=== PATIENT | male | born 1950 | race Two or more races ===

== ENCOUNTER → 2024-07-03 | Outpatient (CLI) | payer MEDICARE, MEDICAID, SELFPAY ==
--- NOTE | 2024-07-03 12:40 | XR_ITS ---
Examination: Bone densitometry Date and time of exam:July 03, 2024, 1303 hrs. Indications: 73-year-old male with diagnosis age related osteoporosis Technique: Lumbar spine and hip total bone mineralization values of an calculated. Peak reference and age match control results have been displayed. Findings: Lumbar spine total bone mineralization is1.471 gm/cm2. This is 3.5 standard deviations above peak reference. This is 1.4 standard deviations above age-matched controls. Hip total bone mineralization is 1.299 gm/cm2 This is 1.9 standard deviations above peak reference. This is 2.6 standard deviations above age-matched controls Impression: There is normal mineralization based on lumbar spine measurements. There is normal mineralization based on hip measurements
== END | disposition home or self-care (01) ==
PROVIDERS: PCP Family Medicine; Referring Provider Family Medicine; Visit Provider Family Medicine
DX: M85.88 Other specified disorders of bone density and structure, other site (principal); M81.0 Age-related osteoporosis without current pathological fracture; G89.29 Other chronic pain
CPT/HCPCS: 77080

== ENCOUNTER 2024-09-24 14:00 | Outpatient (AMB) | payer MEDICARE, MEDICAID, SELFPAY ==
--- NOTE | 2024-09-24 14:34 | PD.ORTHCLVIS ---
Vital signs 09/24/24 14:35 Height 1.8 m Height Method Stated Weight 97.607 kg Weight Measurement Method Standing Scale BMI 29.9 BP 124/84 Blood Pressure Source Automatic Cuff Blood Pressure Location Right Upper Arm Position Sitting Respiration 18 Pulse 93 Pulse Source Monitor Temp 99.0 F Temp Source Temporal Artery Scan Pulse Oximetry (%) 91 L Oxygen Delivery Method Room Air Med/Allergies Allergies & Medications Allergies bee venom protein (honey bee) Allergy (Severe, Verified 09/24/24 14:36) Anaphylaxis hydrocodone (From [place]) Allergy (Severe, Verified 09/24/24 14:36) Confusion Medication Reconciliation celecoxib 100 mg capsule 100 mg PO BID PRN Pain 08/08/18 [History Confirmed 05/05/19] lisinopril 30 mg tablet 30 mg PO BID 08/08/18 [History Confirmed 05/05/19] montelukast 10 mg tablet 1 tab PO QDAY 08/08/18 [History Confirmed 05/05/19] tamsulosin 0.4 mg capsule 0.4 mg PO QDAY #30 caps 08/08/18 [Rx Confirmed 05/05/19] hydroxyzine HCl 25 mg tablet 25 mg PO TID PRN Anxiety 05/01/19 [History Confirmed 05/05/19] omeprazole 40 mg capsule,delayed release 40 mg PO QDAY 05/01/19 [History Confirmed 05/05/19] budesonide-formoterol HFA 160 mcg-4.5 mcg/actuation aerosol inhaler (Symbicort) 2 puff inhalation BID 05/05/19 [History Confirmed 05/05/19] tramadol 50 mg tablet 50 mg PO Q8H PRN pain #30 tabs 05/11/19 [Rx] ibuprofen 800 mg tablet 800 mg PO TID PRN pain #30 tabs 10/06/23 [Rx] Exam Exam Breathing is nonlabored. Patient has a normal mood and affect. Bilateral extremities were evaluated and demonstrates sensation intact to light touch. Palpable pedal pulses are present. No significant edema is present. Bilateral hips were examined. The patient has no pain with log roll of the hips. Internal rotation to 30 degrees and external rotation to 30 degrees is painless. Negative FADIR. Left knee was examined today. The left knee is in reasonable alignment. Range of motion from 0-120 degrees. Knee is stable to varus and valgus as well as AP translation with <5mm. Patient has a negative McMurrays. There is no pain with patellofemoral compression and no crepitus noted. The knee is nontender to palpation. The right knee was also examined. The right knee is in varus alignment. Range of motion from 0-115 degrees. Knee is stable to varus and valgus as well as AP translation with <5mm. Patient has a negative McMurrays. There is no pain with patellofemoral compression and no crepitus noted. The knee is tender to palpation medially. Assessment and Plan Problem List (1) Arthritis of right knee: Status: Acute Plan: Patient is a 73-year-old male with right knee pain and radicular pain that shoots down his leg. We will likely do a cortisone injection in the future to differentiate the back from knee pain. We will need weightbearing x-rays as we have no xrays view today. Advanced Care Planning Discussion Advance care planning discussed with:: patient Office Procedures GNS Level of Care Nursing/Assessment Patient Status: Established Patient Nursing Assessment/Reassesment: Medication Reconciliation, Update PMH in EMR and Vital Signs Coordination of Care: Complex Care and Chronic Disease 1-5, Education Complex Pt/Fam, Consent,records obtained, informed consent, Results/Orders obtained and Staff clarify orders Established Patient Charge Established Patient Point Assignment: 95 Established Patient Point Charge: EP Level 3 (80-115) MA Intake Visit Data Collection New Patient or Established: Established Patient (seen at [facility] within 3 years) Reason for Visit:: right knee pain Seen by Clinical Staff ONLY (RN/MA): No Verbal consent obtained for Telemed visit?: No Design Lead Required: Yes PCP or OBGYN visit in last 3 months: Yes Hx Now: No Do You Feel Safe at Home: Yes Authorities Contacted: N/A Questionairres Past Medical History Past Medical History Have you ever been diagnosed with any of the following: Neurological Problems Seizures: No Cardiology Problems Congestive Heart Failure: No Edema: Yes (SWOLLEN FEET AND ANKLE) Cellulitis: No (RIGHT ARMS SCRATCHES) Hypertension: Yes (TAKES MED) Respiratory Problems Chronic Obstructive Pulmonary Disease (COPD): No (HAS ASTHMA HAS INHALER) Asthma: Yes Pneumonia: Yes (HOSP 2019) Tuberculosis: No Sleep Apnea: No Stomache/Intestinal Problems Hepatitis: No Gastrointestinal Bleed: Yes Diverticulitis: Yes Diverticulosis: Yes Hiatal Hernia: Yes Hemorrhoids: Yes (NO [place]ENIX) Gastroesophageal Reflux Disease: Yes Genital/Urinary Problems Renal Disease: No Benign Prostatic Hyperplasia: Yes (TAKES MED) Musculoskeletal Problems Arthritis: Yes Fractures: Yes (RIBS FELL 2019 ER VISIT) Endocrine Problems Diabetes Mellitus Type 1: No Diabetes Mellitus Type 2: No Blood Problems Anemia: No Sickle Cell Disease: No Other Problems Hospitalization: Yes ([facility] 2019 [facility]) Shingles: No Falls: Yes (2019) Blood Transfusions: Yes (2018 DUE TO DIVERTICULITS) Blood Transfusion Reaction: No Anesthesia Reactions: No Chemotherapy: No Radiation Therapy: No MRSA: No Chicken Pox: No Measles: Yes Mumps: No Cancer: No Surgical History Pacemaker: No Subjective Visit Visit for: new patient and knee Immunization / Flu Flu Vaccine in the Last 12 Months: No Flu Vaccine Exclusion Criteria: No Exclusion Criteria History of Present Illness Chief complaint: right knee pain Date of injury / onset of symptoms: 2 months Shashank is a pleasant 72-year-old male with back pain that radiates down his leg. He also reports significant knee pain in both knees. Has not had any conservative treatment. We have no x-rays of his back or knee to review today. He has not tried any anti-inflammatories or injections Personal History Occupation: retired [employer] PMH: BMI BMI Counceling provided: Yes Pain Pain level (0-10): 6 Pain duration: comes and goes Pain quality: dull Associated signs & symptoms: none Ambulatory data Ambulatory device: none Treatments Improvement with previous injections: No Improvement with PT: No Improvement with NSAIDS: no Review of Systems Review of Systems: All systems negative unless otherwise noted in HPI.
[2024-09-24 14:35] VITALS: BP 124/84; PULSE 93; RESP 18; TEMP 37.2; O2SAT 91; BMI 29.9
--- NOTE | 2024-09-24 14:48 | XR_ITS ---
Examination: Lumbar spine 3 views TECHNIQUE: AP lateral coned lateral lower lumbar spine 3 views Date and time: September 24, 2024 1408 hours INDICATIONS: Low back pain 3 months. FINDINGS: Adequate alignment lumbar vertebral bodies on the lateral view Diffuse advanced lumbar degenerative disc disease Prominent lumbar spondylosis IMPRESSION: Diffuse advanced lumbar degenerative disc disease
--- NOTE | 2024-09-24 14:48 | XR_ITS ---
Examination: Bilateral knees 2 views Right lateral knee left lateral knee 2 views Bilateral axial knees single view TECHNIQUE: Bilateral AP knees standing single view, bilateral PA knees standing single view flexion Standing right lateral knee left lateral knee 2 views Bilateral axial knees single view total 5 views Date and time: September 24, 2024 1457 hours INDICATIONS: Knee pain years. FINDINGS: Moderate narrowing medial joint spaces bilaterally Moderate osteoarthritis patellofemoral joints bilaterally No fractures No patellar dislocation IMPRESSION: Moderate narrowing medial joint spaces bilaterally Moderate osteoarthritis patellofemoral joints bilaterally
== END 2024-09-24 14:52 | disposition home or self-care (01) ==
LOC: HODSRG 14:00
PROVIDERS: PCP Family Medicine; Referring Provider Family Medicine; Supervising Provider Orthopaedic Surgery Adult Reconstructive Orthopaedic Surgery; Visit Provider Orthopaedic Surgery Adult Reconstructive Orthopaedic Surgery
DX: M17.11 Unilateral primary osteoarthritis, right knee (principal); M51.369 Other intervertebral disc degeneration, lumbar region without mention of lumbar back pain or lower extremity pain; M25.561 Pain in right knee; M25.562 Pain in left knee
CPT/HCPCS: 72100; 73564; 99213; G0463

== ENCOUNTER 2024-10-08 13:20 | Outpatient (AMB) | payer MEDICARE, MEDICAID, SELFPAY ==
--- NOTE | 2024-10-08 13:48 | PD.ORTHCLVIS ---
Vital signs 10/08/24 13:54 Height 1.8 m Height Method Stated Weight 97.551 kg Weight Measurement Method Standing Scale BMI 30.1 BP 157/91 H Blood Pressure Source Automatic Cuff Blood Pressure Location Left Upper Arm Position Sitting Respiration 18 Pulse 89 Pulse Source Monitor Temp 98.9 F Temp Source Temporal Artery Scan Pulse Oximetry (%) 94 L Oxygen Delivery Method Room Air Med/Allergies Allergies & Medications Allergies bee venom protein (honey bee) Allergy (Severe, Verified 10/08/24 13:55) Anaphylaxis hydrocodone (From [place]) Allergy (Severe, Verified 10/08/24 13:55) Confusion Medication Reconciliation celecoxib 100 mg capsule 100 mg PO BID PRN Pain 08/08/18 [History Confirmed 10/08/24] lisinopril 30 mg tablet 30 mg PO BID 08/08/18 [History Confirmed 10/08/24] montelukast 10 mg tablet 1 tab PO QDAY 08/08/18 [History Confirmed 10/08/24] tamsulosin 0.4 mg capsule 0.4 mg PO QDAY #30 caps 08/08/18 [Rx Confirmed 10/08/24] hydroxyzine HCl 25 mg tablet 25 mg PO TID PRN Anxiety 05/01/19 [History Confirmed 10/08/24] omeprazole 40 mg capsule,delayed release 40 mg PO QDAY 05/01/19 [History Confirmed 10/08/24] budesonide-formoterol HFA 160 mcg-4.5 mcg/actuation aerosol inhaler (Symbicort) 2 puff inhalation BID 05/05/19 [History Confirmed 10/08/24] tramadol 50 mg tablet 50 mg PO Q8H PRN pain #30 tabs 05/11/19 [Rx Confirmed 10/08/24] ibuprofen 800 mg tablet 800 mg PO TID PRN pain #30 tabs 10/06/23 [Rx Confirmed 10/08/24] Exam Exam Breathing is nonlabored. Patient has a normal mood and affect. Bilateral extremities were evaluated and demonstrates sensation intact to light touch. Palpable pedal pulses are present. No significant edema is present. Bilateral hips were examined. The patient has no pain with log roll of the hips. Internal rotation to 30 degrees and external rotation to 30 degrees is painless. Negative FADIR. Left knee was examined today. The left knee is in reasonable alignment. Range of motion from 0-120 degrees. Knee is stable to varus and valgus as well as AP translation with <5mm. Patient has a negative McMurrays. There is no pain with patellofemoral compression and no crepitus noted. The knee is nontender to palpation. The right knee was also examined. The right knee is in varus alignment. Range of motion from 0-115 degrees. Knee is stable to varus and valgus as well as AP translation with <5mm. Patient has a negative McMurrays. There is no pain with patellofemoral compression and no crepitus noted. The knee is tender to palpation medially. X-rays of the right knee demonstrates no joint space narrowing at all. The knee actually does not demonstrate any fracture and has preserved joint spaces X-rays of the lumbar spine demonstrate diffuse advanced lumbar degenerative disc disease with significant narrowing. We Will order an MRI Assessment and Plan Problem List (1) Lumbar stenosis: Status: Acute Plan: Patient is a pleasant 73-year-old male with lumbar stenosis and radicular leg pain. We discussed his knee x-ray is actually pretty good. He has preserved joint spaces. The pain starts in his buttocks and radiates all the way down to the bottom of his feet. We will order an MRI of his lumbar spine given that his x-rays show significant degenerative changes Advanced Care Planning Discussion Advance care planning discussed with:: patient and child Office Procedures GNS Level of Care Nursing/Assessment Patient Status: Established Patient Nursing Assessment/Reassesment: Medication Reconciliation, Update PMH in EMR and Vital Signs Coordination of Care: Complex Care and Chronic Disease 1-5, Education Complex Pt/Fam, Consent,records obtained, informed consent, Results/Orders obtained and Staff clarify orders Established Patient Charge Established Patient Point Assignment: 95 Established Patient Point Charge: EP Level 3 (80-115) MA Intake Visit Data Collection New Patient or Established: Established Patient (seen at [facility] within 3 years) Reason for Visit:: XRAY RESULTS Seen by Clinical Staff ONLY (RN/MA): No PCP or OBGYN visit in last 3 months: Yes Hx Now: No Do You Feel Safe at Home: Yes Authorities Contacted: N/A Questionairres Past Medical History Past Medical History Have you ever been diagnosed with any of the following: Neurological Problems Seizures: No Cardiology Problems Congestive Heart Failure: No Edema: Yes (SWOLLEN FEET AND ANKLE) Cellulitis: No (RIGHT ARMS SCRATCHES) Hypertension: Yes (TAKES MED) Respiratory Problems Chronic Obstructive Pulmonary Disease (COPD): No (HAS ASTHMA HAS INHALER) Asthma: Yes Pneumonia: Yes (HOSP 2019) Tuberculosis: No Sleep Apnea: No Smoking: No Smoking Exposure: No Stomache/Intestinal Problems Hepatitis: No Gastrointestinal Bleed: Yes Diverticulitis: Yes Diverticulosis: Yes Hiatal Hernia: Yes Hemorrhoids: Yes (NO [place]) Gastroesophageal Reflux Disease: Yes Genital/Urinary Problems Renal Disease: No Benign Prostatic Hyperplasia: Yes (TAKES MED) Musculoskeletal Problems Arthritis: Yes Fractures: Yes (RIBS FELL 2019 ER VISIT) Endocrine Problems Diabetes Mellitus Type 1: No Diabetes Mellitus Type 2: No Blood Problems Anemia: No Sickle Cell Disease: No Other Problems Hospitalization: Yes ([facility] 2019 [facility]) Shingles: No Falls: Yes (2019) Blood Transfusions: Yes (2018 DUE TO DIVERTICULITS) Blood Transfusion Reaction: No Anesthesia Reactions: No Chemotherapy: No Radiation Therapy: No MRSA: No Chicken Pox: No Measles: Yes Mumps: No Cancer: No Surgical History Pacemaker: No Subjective Visit Visit for: follow up visit, knee and x-rays Immunization / Flu Flu Vaccine in the Last 12 Months: No Flu Vaccine Exclusion Criteria: No Exclusion Criteria History of Present Illness Chief complaint: right knee pain Date of injury / onset of symptoms: 2 months Shashank is a pleasant 72-year-old male with back pain that radiates down his leg. He also reports significant knee pain in both knees. Has not had any conservative treatment. He has not tried any anti-inflammatories or injections Personal History Occupation: retired [employer] PMH: BMI BMI Counceling provided: Yes Pain Pain level (0-10): 6 Pain duration: comes and goes Pain location: outside (lateral) and anterior Pain quality: dull Pain timing: night, increases with activity and stairs Associated signs & symptoms: none Ambulatory data Ambulatory device: none Treatments Improvement with previous injections: No Improvement with PT: No Improvement with NSAIDS: no Review of Systems Review of Systems: All systems negative unless otherwise noted in HPI.
[2024-10-08 13:54] VITALS: BP 157/91; PULSE 89; RESP 18; TEMP 37.2; O2SAT 94; BMI 30.1
== END 2024-10-08 13:48 | disposition home or self-care (01) ==
LOC: HODSRG 13:20
PROVIDERS: PCP Family Medicine; Referring Provider Family Medicine; Supervising Provider Orthopaedic Surgery Adult Reconstructive Orthopaedic Surgery; Visit Provider Orthopaedic Surgery Adult Reconstructive Orthopaedic Surgery
DX: M48.061 Spinal stenosis, lumbar region without neurogenic claudication (principal); M25.562 Pain in left knee; M25.561 Pain in right knee
CPT/HCPCS: 99213; G0463

== ENCOUNTER → 2024-11-24 | Outpatient (CLI) | payer MEDICARE, MEDICAID, SELFPAY ==
--- NOTE | 2024-11-24 09:00 | XR_ITS ---
Examination: MRI lumbar spine without contrast Date and time of exam: November 24, 2024 1103 hours INDICATIONS: Low back pain 5 months radiating to both legs Technique: Multiple MRI axial and sagittal sections lumbar spine. Sagittal T2-weighted images, TR 3500, TE 118 T1 weighted transverse sections, TR 688 T8.5, T2-weighted sagittal sections T1 weighted sagittal sections TR 621, TE 30 T2 axial sections, TR 4, 190, TE 84. Findings: Adequate alignment lumbar vertebral bodies No lumbar fracture Diffuse moderate to advanced lumbar degenerative disc disease most severe at L4-L5 Diffuse lumbar disc desiccation L5-S1 3 mm central lumbar disc bulge L4-L5 3 mm left foraminal disc bulge L3-L4 6 mm left 5 mm right foraminal disc bulges no ganglionic compression L2-L3 no disc protrusion L1-L2 no disc protrusion IMPRESSION: Diffuse lumbar degenerative disc disease, advanced L4-L5 L5-S1 3 mm central lumbar disc bulge L4-L5 3 mm left foraminal disc bulge L3-L4 6 mm left 5 mm right foraminal disc bulges but no ganglionic compression
== END | disposition home or self-care (01) ==
LOC: SMRI 07:57
PROVIDERS: PCP Family Medicine; Referring Provider Orthopaedic Surgery Adult Reconstructive Orthopaedic Surgery; Visit Provider Orthopaedic Surgery Adult Reconstructive Orthopaedic Surgery
DX: M51.360 Other intervertebral disc degeneration, lumbar region with discogenic back pain only (principal); M51.370 Other intervertebral disc degeneration, lumbosacral region with discogenic back pain only
CPT/HCPCS: 72148

== ENCOUNTER 2025-02-23 07:51 | Outpatient (AMB) | payer MEDICARE, MEDICAID, SELFPAY ==
--- NOTE | 2025-02-23 08:11 | PD.ORTHCLVIS ---
Vital signs 02/23/25 08:13 Height 1.8 m Height Method Stated Weight 95.339 kg Weight Measurement Method Standing Scale BMI 29.4 BP 147/74 H Blood Pressure Source Automatic Cuff Blood Pressure Location Left Upper Arm Position Sitting Respiration 18 Pulse 73 Pulse Source Monitor Temp 98.6 F Temp Source Temporal Artery Scan Pulse Oximetry (%) 94 L Oxygen Delivery Method Room Air Med/Allergies Allergies & Medications Allergies bee venom protein (honey bee) Allergy (Severe, Verified 02/23/25 08:13) Anaphylaxis hydrocodone (From [place]) Allergy (Severe, Verified 02/23/25 08:13) Confusion Medication Reconciliation celecoxib 100 mg capsule 100 mg PO BID PRN Pain 08/08/18 [History Confirmed 02/23/25] lisinopril 30 mg tablet 30 mg PO BID 08/08/18 [History Confirmed 02/23/25] montelukast 10 mg tablet 1 tab PO QDAY 08/08/18 [History Confirmed 02/23/25] tamsulosin 0.4 mg capsule 0.4 mg PO QDAY #30 caps 08/08/18 [Rx Confirmed 02/23/25] hydroxyzine HCl 25 mg tablet 25 mg PO TID PRN Anxiety 05/01/19 [History Confirmed 02/23/25] omeprazole 40 mg capsule,delayed release 40 mg PO QDAY 05/01/19 [History Confirmed 02/23/25] budesonide-formoterol HFA 160 mcg-4.5 mcg/actuation aerosol inhaler (Symbicort) 2 puff inhalation BID 05/05/19 [History Confirmed 02/23/25] tramadol 50 mg tablet 50 mg PO Q8H PRN pain #30 tabs 05/11/19 [Rx Confirmed 02/23/25] ibuprofen 800 mg tablet 800 mg PO TID PRN pain #30 tabs 10/06/23 [Rx Confirmed 02/23/25] Exam Exam Breathing is nonlabored. Patient has a normal mood and affect. Bilateral extremities were evaluated and demonstrates sensation intact to light touch. Palpable pedal pulses are present. No significant edema is present. Bilateral hips were examined. The patient has no pain with log roll of the hips. Internal rotation to 30 degrees and external rotation to 30 degrees is painless. Negative FADIR. Left knee was examined today. The left knee is in reasonable alignment. Range of motion from 0-120 degrees. Knee is stable to varus and valgus as well as AP translation with <5mm. Patient has a negative McMurrays. There is no pain with patellofemoral compression and no crepitus noted. The knee is nontender to palpation. The right knee was also examined. The right knee is in varus alignment. Range of motion from 0-115 degrees. Knee is stable to varus and valgus as well as AP translation with <5mm. Patient has a negative McMurrays. There is no pain with patellofemoral compression and no crepitus noted. The knee is tender to palpation medially. X-rays of the right knee demonstrates no joint space narrowing at all. The knee actually does not demonstrate any fracture and has preserved joint spaces X-rays of the lumbar spine demonstrate diffuse advanced lumbar degenerative disc disease with significant narrowing. An MRI demonstrates diffiuse degenerative changes at l4-l5 in particular Assessment and Plan Problem List (1) Lumbar stenosis: Status: Acute Plan: Patient is a pleasant 73-year-old male with lumbar stenosis and radicular leg pain. We discussed his knee x-ray is actually pretty good. He has preserved joint spaces. The pain starts in his buttocks and radiates all the way down to the bottom of his feet. We ordered an MRI which demonstrates diffuse degenerative changes. He likely would benefit from a lumbar spine injection Advanced Care Planning Discussion Advance care planning discussed with:: patient Office Procedures GNS Level of Care Nursing/Assessment Patient Status: Established Patient Nursing Assessment/Reassesment: Medication Reconciliation, Update PMH in EMR and Vital Signs Coordination of Care: Complex Care and Chronic Disease 1-5, Education Complex Pt/Fam, Consent,records obtained, informed consent, Results/Orders obtained and Staff clarify orders Special Needs: Language special needs Established Patient Charge Established Patient Point Assignment: 95 Established Patient Point Charge: EP Level 3 (80-115) MA Intake Visit Data Collection New Patient or Established: Established Patient (seen at [facility] within 3 years) Reason for Visit:: MRI RESULTS R KNEE Seen by Clinical Staff ONLY (RN/MA): No Freezer Person Required: Yes PCP or OBGYN visit in last 3 months: Yes Hx Now: No Do You Feel Safe at Home: Yes Authorities Contacted: N/A Questionairres Past Medical History Past Medical History Have you ever been diagnosed with any of the following: Neurological Problems Seizures: No Cardiology Problems Congestive Heart Failure: No Edema: Yes (SWOLLEN FEET AND ANKLE) Cellulitis: No (RIGHT ARMS SCRATCHES) Hypertension: Yes (TAKES MED) Respiratory Problems Chronic Obstructive Pulmonary Disease (COPD): No (HAS ASTHMA HAS INHALER) Asthma: Yes Pneumonia: Yes (HOSP 2019) Tuberculosis: No Sleep Apnea: No Smoking: No Smoking Exposure: No Stomache/Intestinal Problems Hepatitis: No Gastrointestinal Bleed: Yes Diverticulitis: Yes Diverticulosis: Yes Hiatal Hernia: Yes Hemorrhoids: Yes (NO [place]) Gastroesophageal Reflux Disease: Yes Genital/Urinary Problems Renal Disease: No Benign Prostatic Hyperplasia: Yes (TAKES MED) Musculoskeletal Problems Arthritis: Yes Fractures: Yes (RIBS FELL 2019 ER VISIT) Endocrine Problems Diabetes Mellitus Type 1: No Diabetes Mellitus Type 2: No Blood Problems Anemia: No Sickle Cell Disease: No Other Problems Hospitalization: Yes ([facility]) Shingles: No Falls: Yes (2019) Blood Transfusions: Yes (2018 DUE TO DIVERTICULITS) Blood Transfusion Reaction: No Anesthesia Reactions: No Chemotherapy: No Radiation Therapy: No MRSA: No Chicken Pox: No Measles: Yes Mumps: No Cancer: No Surgical History Pacemaker: No Subjective Visit Visit for: follow up visit, knee (RIGHT) and MRI (RESULTS) Immunization / Flu Flu Vaccine in the Last 12 Months: No Flu Vaccine Exclusion Criteria: No Exclusion Criteria History of Present Illness Chief complaint: right knee pain Date of injury / onset of symptoms: 2 months Shashank is a pleasant 72-year-old male with back pain that radiates down his leg. He also reports significant knee pain in both knees. Has not had any conservative treatment. He has not tried any anti-inflammatories or injections. He is here for MRI results Personal History Occupation: retired [employer] PMH: BMI BMI Counceling provided: Yes Pain Pain level (0-10): 3 Pain duration: comes and goes Pain location: outside (lateral) and anterior Pain quality: aching Pain timing: night, increases with activity and stairs Associated signs & symptoms: none Ambulatory data Ambulatory device: none Treatments Improvement with previous injections: No Improvement with PT: No Improvement with NSAIDS: no Review of Systems Review of Systems: All systems negative unless otherwise noted in HPI.
[2025-02-23 08:13] VITALS: BP 147/74; PULSE 73; RESP 18; TEMP 37; O2SAT 94; BMI 29.4
== END 2025-02-23 08:30 | disposition home or self-care (01) ==
LOC: HODSRG 07:51
PROVIDERS: PCP Family Medicine; Referring Provider Family Medicine; Supervising Provider Orthopaedic Surgery Adult Reconstructive Orthopaedic Surgery; Visit Provider Orthopaedic Surgery Adult Reconstructive Orthopaedic Surgery
DX: M48.061 Spinal stenosis, lumbar region without neurogenic claudication (principal)
CPT/HCPCS: 99213; G0463

== ENCOUNTER 2025-03-23 07:15 | Day surgery (SDC) | payer MEDICARE, MEDICAID, SELFPAY ==
[2025-03-22 11:16] VITALS: BMI 29.5
[2025-03-23] VITALS (16 sets, daily range): BP systolic 153–183; BP diastolic 78–91; PULSE 57–79; RESP 11–20; TEMP 36.4–36.8; O2SAT 94–98; BMI 30.8
[2025-03-23] MEDS: MIDAZOLAM INJ 1 MG/ML VIAL 2 ML (ASD USE ONLY) 2 MG IVP (09:28)
[2025-03-23] MEDS: RINGERS LACTATED 1000 ML 1,000 ML 60 ML IV (09:28)
[2025-03-23] MEDS: fentaNYL CIT INJ 50 mCg/ML AMP 2ML (ASD USE ONLY) IVP (09:29)
== END 2025-03-23 10:50 | disposition home or self-care (01) ==
PROVIDERS: PCP Family Medicine; Referring Provider Specialist; Visit Provider Specialist
PROC: 0DBE8ZX Excision of Large Intestine, Via Natural or Artificial Opening Endoscopic, Diagnostic (ICD-10-PCS; CPT 45380; principal; 2025-03-23 08:30)
DX: Z12.11 Encounter for screening for malignant neoplasm of colon (principal); D12.4 Benign neoplasm of descending colon; D12.0 Benign neoplasm of cecum; K57.30 Diverticulosis of large intestine without perforation or abscess without bleeding
CPT/HCPCS: 45385; A4217; A4649; J1200; J2250; J3010; J7120

== ENCOUNTER → 2025-03-26 | Outpatient (CLI) | payer MEDICARE, MEDICAID, SELFPAY ==
[2025-03-26 09:52] LABS: Blood Urea Nitrogen 12 mg/dL (9-23); Creatinine (Component) 0.9 mg/dL (0.6-1.3); eGFR > 60 See Note
== END | disposition home or self-care (01) ==
LOC: COPL 08:14
PROVIDERS: PCP Family Medicine; Referring Provider Specialist; Visit Provider Specialist
DX: K43.9 Ventral hernia without obstruction or gangrene (principal); R10.33 Periumbilical pain
CPT/HCPCS: 36415; 82565; 84520

== ENCOUNTER → 2025-04-01 | Outpatient (CLI) | payer MEDICARE, MEDICAID, SELFPAY ==
--- NOTE | 2025-04-01 10:00 | XR_ITS ---
Examination: CT abdomen with intravenous contrast CT pelvis with intravenous contrast 2-D coronal reconstructions 2-D sagittal reconstructions Date and time of exam: April 01, 2025, 1004 hours INDICATIONS: Generalized abdominal pain 10 years, history diverticulosis COMPARISON: April 29, 2019. CTDI: vol (mGy) 9.52 DLP: (mGycm) 593 Technique: Multiple axial sections of the abdomen and pelvis have been obtained. 64 slice high-resolution scanner used. 3 mm axial sections have been obtained, post intravenous injection 60 cc [id number] 2-D sagittal, coronal reconstructions obtained. Low dose protocols were performed. One or more of the following dose reduction techniques were used; automated exposure control, adjustment of the mA and/or KV according to patient size, use of iterative reconstruction technique. Findings: No focal liver or splenic lesions Tiny gallstones No pancreatic or adrenal mass Small bilateral renal cysts, no hydronephrosis renal or ureteral calculi Aortic calcification no aneurysmal dilatation No pericecal inflammatory change Diffuse colonic diverticulosis especially rectosigmoid, no diverticulitis Normal seminal vesicles Prostatomegaly, transverse dimension 5.7 cm Contracted urinary bladder Moderate lumbar spondylosis Moderate to advanced diffuse lumbar degenerative disc disease IMPRESSION: Cholelithiasis Diffuse colonic diverticulosis, especially rectosigmoid, but no diverticulitis Moderate prostatomegaly
== END | disposition home or self-care (01) ==
PROVIDERS: PCP Family Medicine; Referring Provider Specialist; Visit Provider Specialist
DX: K80.20 Calculus of gallbladder without cholecystitis without obstruction (principal); K57.30 Diverticulosis of large intestine without perforation or abscess without bleeding; N40.0 Benign prostatic hyperplasia without lower urinary tract symptoms
CPT/HCPCS: 74177; A4649; Q9967